=== PATIENT | female | born 1990 | race Caucasian/White ===

== ENCOUNTER 2016-10-16 19:35 | Emergency (ER) | payer SELFPAY ==
[~2016-10-16] VITALS: Ht 185.4 cm; Wt 63.5 kg
[2016-10-16 19:58] VITALS: BP 116/72
[2016-10-16] MEDS ORDERED: AMOXICILLIN500 MG ORAL (20:10)
[2016-10-16] MEDS ORDERED: PREDNISONE20 MG ORAL (20:10)
[2016-10-16 20:16] VITALS: BP 116/72
--- NOTE | 2016-10-16 21:50 | Emergency Room Report ---
History of Present Illness General Chief Complaint: Sore Throat Source: Patient Present Illness HPI The patient is a 26-year-old female presenting for sore throat and cough which began 2 days prior. The patient states that she was recently on an airplane with possible sick contacts. Pain is described as an 8/10 dull ache to the back of the throat and does not radiate. Pain worse with swallowing. Cough is productive with green to yellow sputum. She has not tried any medications. She denies any other symptoms including nausea, vomiting, fever, chills, shortness of breath, wheezing, neck pain, headache Allergies: Coded Allergies: No Known Allergies (Unverified , 10/16/16) Patient History Past Medical History: see triage record Pertinent Family History: none Last Menstrual Period: 10/02/16 Now: No Reviewed Nursing Documentation: PMH: Agreed, PSxH: Agreed Nursing Documentation-PMH Past Medical History: No Stated History Review of Systems All Other Systems: negative except mentioned in HPI Physical Exam Vital Signs Date Time Temp Pulse Resp B/P Pulse Ox O2 Delivery O2 Flow Rate FiO2 10/16/16 19:51 98.8 95 16 112/69 100 Room Air Sp02 EP Interpretation: reviewed, normal General Appearance: no apparent distress, alert, GCS 15, non-toxic Head: normocephalic, atraumatic Eyes: bilateral eye PERRL, bilateral eye normal inspection ENT: hearing grossly normal, no angioedema, normal voice, uvula midline, tonsillar swelling, pharyngeal erythema, tonsillar exudate Respiratory: chest non-tender, lungs clear, normal breath sounds, no wheezing, speaking full sentences Cardiovascular #1: regular rate, rhythm, no edema Neurologic: alert, oriented x3, responsive, motor strength/tone normal, sensory intact, normal gait, speech normal Psychiatric: judgement/insight normal, memory normal, mood/affect normal, no suicidal/homicidal ideation Skin: normal color, no rash, warm/dry, well hydrated Lymphatic: adenopathy Medical Decision Making PA Attestation Dr. Rodriguez is my supervising physician. Patient management was discussed with my supervising physician Diagnostic Impression: Primary Impression: Pharyngitis, acute Qualified Codes: J02.9 - Acute pharyngitis, unspecified ER Course The patient is a 26-year-old female presenting for sore throat and cough Differential diagnosis include but not limited to pharyngitis, sinusitis, AOM, bronchitis, PNA Physical exam: Vitals within normal limits. Afebrile. No apparent distress HEENT exam: There is bilateral tonsillar edema, erythema, and exudate. Uvula midline. Moist mucous membranes. There is bilateral cervical lymphadenopathy. Lungs are clear to auscultation bilaterally Skin is warm and dry. No rash The patient will be discharged home with a prescription for amoxicillin and is given ER precautions. Patient will followup with primary care Last Vital Signs Date Time Temp Pulse Resp B/P Pulse Ox O2 Delivery O2 Flow Rate FiO2 10/16/16 20:16 98.6 92 15 116/72 100 Room Air Status: improved Disposition: HOME, SELF-CARE Condition: Improved Scripts Prednisone* (PREDNISONE*) 20 Mg Tablet 40 MG ORAL DAILY, #6 TAB Prov: BRENDA WINSTON 10/16/16 Amoxicillin* (AMOXIL*) 500 Mg Capsule 500 MG ORAL Q12HR, #20 CAP Prov: BRENDA WINSTON 10/16/16 Patient Instructions: Sore Throat Additional Instructions: I discussed my findings with the patient. All questions and concerns have been answered. Treatment and medication compliance have been addressed. I advised the patient that they need to follow up with PMD in 3-5 days. Return to ED if pain remains or worsens, cough worsens or remains, you notice blood in your sputum, you notice wheezing, you experience a fever, or if needed for any reason. Patient verbalized understanding of discharge instructions. BRENDA WINSTON Oct 16, 2016 21:49
== END 2016-10-16 20:17 | disposition home or self-care (01) ==
LOC: EMR 20:04
DX: J02.9 Acute pharyngitis, unspecified (principal)
CPT/HCPCS: 99284